=== PATIENT | male | born 1995 | race Caucasian/White ===

== ENCOUNTER 2021-08-26 22:57 | Emergency (ER) | payer BC ==
[2021-08-26 23:15] VITALS: BP 125/79; PULSE 75; TEMP 99.1; BMI 21.6
== END 2021-08-27 00:48 | disposition home or self-care (01) ==
LOC: SUPCPDRO 22:57 → FER 22:57
DX: S09.90XA Unspecified injury of head, initial encounter (principal); S00.83XA Contusion of other part of head, initial encounter; S16.1XXA Strain of muscle, fascia and tendon at neck level, initial encounter; Y04.2XXA Assault by strike against or bumped into by another person, initial encounter
CPT/HCPCS: 72050-TC-FY; 99283-25